=== PATIENT | female | born 1940 | race Caucasian/White ===

== ENCOUNTER 2018-02-09 14:53 | Outpatient (CLI) | payer MEDICARE, OTHER ==
--- NOTE | 2018-02-10 16:04 | DEXA Report ---
DEXA SCAN: 02/09/2018 CLINICAL INDICATION: Postmenopausal osteoporosis. TECHNIQUE: Dual energy x-ray absorptiometry (DXA) was performed on a KKBOX system. Regions measured are the AP spine, femoral neck, and, if needed, forearm. COMPARISON: None. In accordance with the International Society for Clinical Densitometry (ISCD) guidelines, data from previous exams may be reanalyzed using current recommendations and techniques. This is done to allow a more accurate basis for comparison with the current study. FINDINGS Data for the lumbar spine is as follows: REGION BMD (g/cm/cm) T-SCORE Z-SCORE L1 0.767 -3.0 -0.7 L2 0.858 -2.8 -0.5 L3 0.835 -3.0 -0.7 L4 0.934 -2.2 0.1 L1-L4 0.852 -2.7 -0.4 NOTE: All evaluable vertebrae are used for classification. Data for the hip is as follows: REGION BMD (g/cm/cm) T-SCORE Z-SCORE Neck 0.784 -1.8 0.6 TOTAL 0.783 -1.8 0.5 NOTE: The femoral neck or total proximal femur, whichever is lowest, is used for classification. IMPRESSION WHO CLASSIFICATION BASED ON THE INTERNATIONAL REFERENCE STANDARD IS OSTEOPOROSIS. FRACTURE RISK IS HIGH. RECOMMENDATION: Patients with diagnosis of osteoporosis or osteopenia should have regular bone mineral density assessment. For those eligible for Medicare, routine testing is allowed once every 2 years. Testing frequency can be increased for patients who have rapidly progressing disease or for those who are receiving medical therapy to restore bone mass. COMMENT World Health Organization (WHO) definitions for osteoporosis and osteopenia: NORMAL BMD: T-score at 1.0 or higher, fracture risk is low. OSTEOPENIA BMD: T-score between 1.0 and -2.5, fracture risk is increased. OSTEOPOROSIS BMD: T-score at 2.5 or lower, fracture risk high. National Osteoporosis Foundation recommends: 1. Obtain adequate dietary calcium (at least 1200 mg per day) and vitamin D (400 -800 international units per day). 2. Participate, as appropriate, in regular weightbearing and muscle- strengthening exercise. 3. Avoid tobacco use and reduce alcohol and caffeine intake. 4. For more detailed information see the website at www.NOF.org. TD: 02/10/2018 10:17 [email or web address]
== END 2018-02-09 14:54 | disposition home or self-care (01) ==
LOC: DI 14:53
PROVIDERS: ATTEND Family Medicine
DX: M81.0 Age-related osteoporosis without current pathological fracture (principal)
CPT/HCPCS: 77080

== ENCOUNTER 2021-02-07 14:53 | Outpatient (CLI) | payer MEDICARE, OTHER | END 2021-02-07 14:54 | disposition critical access hospital (66) | LOC: EMS 14:53 | DX: R40.0 Somnolence (principal) | CPT/HCPCS: A0425; A0429 ==

== ENCOUNTER 2021-02-07 15:04 | Emergency (ER) | payer MEDICARE, OTHER ==
[2021-02-07] MEDS ORDERED: SODIUM CHLORIDE 0.9% 1,000 ML IV STA (15:10)
[2021-02-07] MEDS ORDERED: ONDANSETRON 4 MG/2 ML VIAL IVP STA (15:11)
--- NOTE | 2021-02-07 15:12 | ED Physician Documentation ---
PD HPI ALTERED MENTAL STATUS - Stated complaint Stated Complaint: POSS STROKE - History obtained from History obtained from: Patient, EMS, Caregiver - History of Present Illness Timing - onset: Today Timing - duration: Hours (The patient was seen to be a little bit confused around 1 PM today after lunch. She was checked on again after 2:00 and was noted to be poorly responsive with apparently some weakness of the right side and possible facial droop. EMS was called and they brought her here. No noted fall or injury.) Timing - details: Abrupt onset Quality / character: Less responsive Associated symptoms: No: Fever, Headache, Dyspnea Contributing factors: No: Anticoagulated, Recent illness, Recent injury Basline status: Alert and oriented X 3, Ambulatory, Walker Similar symptoms before: Diagnosis (States the patient had a small intracranial bleed in 2017 in [place] that did not require surgery and she recovered fully.) Recently seen: Not recently seen Review of Systems Unable to obtain: AMS, Other (some info from daughter and ) Constitutional: denies: Fever GI: denies: Abdominal Pain, Vomiting, Diarrhea Skin: denies: Rash Neurologic: denies: Headache (no recent headaches per family) PD PAST MEDICAL HISTORY - Past Medical History Cardiovascular: Hypertension Respiratory: None Neuro: Other (prior ICH 2017 in [place] with full recover. No surgical intervention. ) Endocrine/Autoimmune: None - Present Medications Home Medications: Ambulatory Orders Medication Instructions Recorded Confirmed Atorvastatin [Lipitor] 20 mg PO DAILY 02/07/21 02/07/21 Calcium Carbonate/Vitamin D3 1 cap PO DAILY 02/07/21 02/07/21 [Calcium 600 mg-D3 10 Mcg Sfgl] Levothyroxine Sodium 50 mcg PO DAILY 02/07/21 02/07/21 [Levothyroxine] Lisinopril [Zestril] 20 mg PO DAILY 02/07/21 02/07/21 Multivitamin 1 tab PO DAILY 02/07/21 02/07/21 Psyllium Husk (with Sugar) [Konsyl 1 PO DAILY 02/07/21 Psyllium Fiber Packet] - Allergies Allergies/Adverse Reactions: Allergies Allergy/AdvReac Type Severity Reaction Status Date / Time adhesive Allergy Unknown Verified 02/07/21 15:17 amlodipine Allergy Unknown Verified 02/07/21 15:17 bacitracin Allergy Unknown Verified 02/07/21 15:17 [From Neosporin ([id number])] neomycin Allergy Unknown Verified 02/07/21 15:17 [From Neosporin ([id number])] polymyxin B Allergy Unknown Verified 02/07/21 15:17 [From Neosporin ([id number])] - Living Situation Living Situation: reports: Other (family lives in area and visits often. ) Living Arrangement: reports: Assisted living - Social History Does the pt smoke?: No Does the pt drink ETOH?: No Does the pt have substance abuse?: No - Family History Family history: reports: Non contributory - Immunizations Immunizations are current?: Yes - POLST POLST Status: Full Code PD ED PE NORMAL - Vitals Vital signs reviewed: Yes - General General: No acute distress, Well developed/nourished, Other - HEENT HEENT: Atraumatic, Other (positive gag reflex. ) - Neck Neck: Supple, no meningeal sign, No adenopathy - Cardiac Cardiac: RRR, No murmur - Respiratory Respiratory: No respiratory distress (unlabored breathing. Sats adequate on NC. ), Clear bilaterally, Other (no obvious chestwall deformity) - Abdomen Abdomen: Non tender (no noted guarding), Non distended - Female Female : Deferred - Rectal Rectal: Deferred - Derm Derm: Normal color, Warm and dry - Extremities Extremities: No tenderness to palpate (having some spontaneous extremity movements. ), No edema, No calf tenderness / cord - Neuro Neuro: No: Alert and oriented X 3 (somnolent but child care my hand on left particularly to command. ) Eye Opening: None Motor: Obeys Commands Verbal: None GCS Score: 8 Results - Vitals Vitals: Vital Signs - 24 hr 02/07/21 02/07/21 02/07/21 15:26 15:28 15:45 Temperature 35.5 C L 35.8 C L Heart Rate 73 63 Respiratory 19 20 Rate Blood Pressure 147/104 H 138/61 H O2 Saturation 86 L 99 99 02/07/21 02/07/21 02/07/21 16:15 16:30 17:00 Temperature 36.0 C L 36.1 C L 36.1 C L Heart Rate 61 64 63 Respiratory 19 21 20 Rate Blood Pressure 152/74 H 143/77 H 152/60 H O2 Saturation 99 100 98 Oxygen O2 Source Nasal cannula - Labs Labs: Laboratory Tests 02/07/21 02/07/21 02/07/21 15:34 15:35 15:35 WBC 7.8 RBC 3.43 L Hgb 9.9 L Hct 30.7 L MCV 89.5 MCH 28.9 MCHC 32.2 RDW 15.9 H Plt Count 130 MPV 13.0 H Neut # (Auto) 6.1 Lymph # (Auto) 1.1 L [place] # (Auto) 0.4 Eos # (Auto) 0.0 Baso # (Auto) 0.0 Absolute Nucleated RBC 0.02 Nucleated RBC % 0.3 PT INR APTT Sodium 136 Potassium 3.7 Chloride 103 Carbon Dioxide 23 Anion Gap 10.0 BUN 17 Creatinine 0.8 Estimated GFR (MDRD) 69 L Glucose 170 H Calcium 8.7 Magnesium 2.0 Total Bilirubin 1.0 AST 31 ALT 26 Alkaline Phosphatase 69 Total Protein 6.3 L Albumin 3.7 Globulin 2.6 Albumin/Globulin Ratio 1.4 Lipase 39 Nasal Adenovirus (PCR) NOT DETECTED Nasal B. parapertussis DNA (PCR) NOT DETECTED Nasal Coronavir 229E PCR NOT DETECTED Nasal Coronavir HKU1 PCR NOT DETECTED Nasal Coronavir NL63 PCR NOT DETECTED Nasal Coronavir OC43 PCR NOT DETECTED Nasal Enterovir/Rhinovir PCR NOT DETECTED Nasal Influenza B PCR NOT DETECTED Nasal Influenza A PCR NOT DETECTED Nasal Parainfluen 1 PCR NOT DETECTED Nasal Parainfluen 2 PCR NOT DETECTED Nasal Parainfluen 3 PCR NOT DETECTED Nasal Parainfluen 4 PCR NOT DETECTED Nasal RSV (PCR) NOT DETECTED Nasal B.pertussis DNA PCR NOT DETECTED Nasal C.pneumoniae (PCR) NOT DETECTED Omi Human Metapneumo PCR NOT DETECTED Nasal M.pneumoniae (PCR) NOT DETECTED Nasal SARS-CoV-2 (PCR) NOT DETECTED 02/07/21 15:35 WBC RBC Hgb Hct MCV MCH MCHC RDW Plt Count MPV Neut # (Auto) Lymph # (Auto) [place]bon # (Auto) Eos # (Auto) Baso # (Auto) Absolute Nucleated RBC Nucleated RBC % PT 12.2 INR 1.1 APTT 20.8 L Sodium Potassium Chloride Carbon Dioxide Anion Gap BUN Creatinine Estimated GFR (MDRD) Glucose Calcium Magnesium Total Bilirubin AST ALT Alkaline Phosphatase Total Protein Albumin Globulin Albumin/Globulin Ratio Lipase Nasal Adenovirus (PCR) Nasal B. parapertussis DNA (PCR) Nasal Coronavir 229E PCR Nasal Coronavir HKU1 PCR Nasal Coronavir NL63 PCR Nasal Coronavir OC43 PCR Nasal Enterovir/Rhinovir PCR Nasal Influenza B PCR Nasal Influenza A PCR Nasal Parainfluen 1 PCR Nasal Parainfluen 2 PCR Nasal Parainfluen 3 PCR Nasal Parainfluen 4 PCR Nasal RSV (PCR) Nasal B.pertussis DNA PCR Nasal C.pneumoniae (PCR) Omi Human Metapneumo PCR Nasal M.pneumoniae (PCR) Nasal SARS-CoV-2 (PCR) PD MEDICAL DECISION MAKING - ED course Complexity details: reviewed results (acute intracranail frontal left bleed with midline shift 12 mm. ), re-evaluated patient (She is having decreasing mentation now with some response to painful stimuli with withdrawal and localizing but no obeying of commands. [facility] is opting for intubation prior to flight.), considered differential, d/w patient, d/w family (daughter and ), d/w network security consultant (Stroke neurology Jackelyn Clarke who accepted transfer to the ER and will evaluate the patient there.) - Critical Care Time(min): 50 Time Includes: Direct patient care, Document care, Coordinate care, Family consult for [place] sep Data interpretation: Labs, Pulse ox Departure - Departure Disposition: 02 Transfer Acute Care Hosp Clinical Impression: Intracranial bleed Altered mental status Qualifiers: Altered mental status type: stupor Qualified Code(s): R40.1 - Stupor Condition: Stable
[2021-02-07] MEDS ORDERED: TRANEXAMIC ACID 1,000 MG in SODIUM CHLORIDE 0.9% 100ML 100 ML IV STA (15:29)
[2021-02-07] MEDS ORDERED: IOPAMIDOL-300 100 ML VIAL IVP ONE (15:29)
--- NOTE | 2021-02-07 15:40 | CT Report ---
PROCEDURE: ANGIO HEAD W/WO INDICATIONS: L sided facial droop CONTRAST: IV CONTRAST: Isovue 300 ml: 100 PO CONTRAST: *NO PO CONTRAST TECHNIQUE: After the administration of intravenous contrast, 1 mm thick sections acquired through th e [place] of [place]. Postcontrast 4.5 mm thick sections then re-acquired from the foramen magnum to t he vertex. 3-dimensional vyhixju-tbvgxbjze-iyiholqidi (MIP) and/or volume rendering reformats were a cquired of the central intracranial vasculature. For radiation dose reduction, the following was use d: automated exposure control, adjustment of mA and/or kV according to patient size. COMPARISON: Question is made with the previously performed noncontrast head CT as well as the accomp anying neck CT angiogram, 02/07/2021. FINDINGS: Image quality: Excellent. Anterior circulation: Intracranial internal carotid arteries are normal in size and flow. The flow within the paired anterior cerebral arteries is normal and symmetric. The flow within the middle cer ebral arteries is normal and symmetric. The anterior communicating artery is seen. No aneurysms are seen. Posterior circulation: Visualized portions of the vertebral arteries demonstrate normal caliber, and join to form a normal appearing basilar artery. Flow within the posterior cerebral arteries is norm al and symmetric. No aneurysms are seen. CSF spaces: There is effacement of the left lateral ventricle. The basal cisterns are narrowed. No extra-axial fluid collections. Brain: There is a prominent parenchymal mass seen within the left frontal lobe that measures 5.8 x 4 .1 cm in greatest axial dimension. There is associated mass effect seen, with midline shift of 12 mm. Early subfalcine herniation can be seen. There is a degree of hemorrhage suspected within the left l ateral ventricle. Atkinson-white matter interface appears intact. Skull and face: Calvarium and facial bones appear intact, without suspicious lesions. Sinuses: Visualized sinuses and mastoids are clear. IMPRESSION: A prominent amount of left frontal lobe intraparenchymal hemorrhage is seen, with hemorrhage also see n within the left lateral ventricle. There is associated mass effect with 12 mm of midline shift and early subfalcine herniation. The ba radha cisterns are narrowed, yet remain patent. No significant intracranial arterial abnormalities are seen. The configuration of the hemorrhage is most compatible with a hypertensive bleed. Please correlate wi th known patient history. Note: Critical finding of acute intracranial hemorrhage discussed by telephone with Dr. Dong at 2: 37 PM [place] time on 02/07/2021. Reviewed by: Donato Chen MD on 02/07/2021 2:39 PM LALY Approved by: Donato Chen MD on 02/07/2021 2:39 PM LALY Station ID: [id number]
--- NOTE | 2021-02-07 15:43 | CT Report ---
PROCEDURE: Head W/O Stroke Protocol INDICATIONS: decreased alertness and right weakness acute TECHNIQUE: Noncontrast 4.5 mm thick angled axial sections acquired from the foramen magnum to the vertex, with c oronal reformats. For radiation dose reduction, the following was used: automated exposure control, adjustment of mA and/or kV according to patient size. COMPARISON: FINDINGS: Image quality: Excellent. CSF spaces: Basal cisterns are patent. No extra-axial fluid collections. Ventricles are normal in size and shape. Brain: There is a large left frontal acute parenchymal bleed with hematoma measuring approximately 7. 6 x 4.6 x 6.9 cm. There is intraventricular extension of the left frontal bleed with acute blood with in the left lateral ventricle. Hematomas causing severe mass effect on the left lateral ventricle and approximately 1.7 cm of left to right midline shift. The right lateral ventricle is prominent concer diamond for developing ventricular entrapment. Encephalomalacia is noted in the frontal lobes and tempor al lobes bilaterally possibly related to remote trauma. Small hypodensity in the right occipital lobe at all small chronic infarct. Skull and face: Calvarium and visualized facial bones are intact, without suspicious lesions. Sinuses: Visualized sinuses and mastoids are clear. IMPRESSION: 1. Large left frontal acute parenchymal bleed and intraventricular extension. Left frontal parenchyma l hematomas causing approximately 1.7 cm of [id number] midline shift. 2. Findings telephoned to Dr. Dong on 02/07/2021 at 1535 hours. This study fulfills neurological imaging criteria for inclusion or exclusion of acute stroke therapie s based on available published neurological imaging guidelines. Reviewed by: Gisela Schneider MD, PhD on 02/07/2021 3:42 PM PDT Approved by: Gisela Schneider MD, PhD on 02/07/2021 3:42 PM PDT Station ID: [id number]
[2021-02-07 15:51] LABS: BASOPHILS % (AUTO) 0.4 %; EOSINOPHILS % (AUTO) 0.3 %; HCT - HEMATOCRIT 30.7 % (37.0-47.0); HGB - HEMOGLOBIN 9.9 g/dL (12.0-16.0); LYMPHOCYTES # (AUTO) 1.1 10^3/uL (1.5-3.5); LYMPHOCYTES % (AUTO) 13.8 %; MEAN CORPUSCULAR HEMOGLOBIN 28.9 pg (27.0-31.0); MEAN CORPUSCULAR HGB CONC 32.2 g/dL (32.0-36.0); MEAN CORPUSCULAR VOLUME 89.5 fL (81.0-99.0); MONOCYTES # (AUTO) 0.4 10^3/uL (0.0-1.0); MONOCYTES % (AUTO) 5.2 %; NEUTROPHILS # (AUTO) 6.1 10^3/uL (1.5-6.6); NEUTROPHILS % (AUTO) 78.5 %; NRBC ABSOLUTE COUNT (AUTO) 0.02 x10^3/uL; NUCLEATED RED BLOOD CELLS AUTO 0.3 /100WBC; PLT - PLATELET COUNT 130 10^3/uL (130-450); RED BLOOD COUNT 3.43 10^6/uL (4.20-5.40); RED CELL DISTRIBUTION WIDTH 15.9 % (12.0-15.0); WHITE BLOOD COUNT 7.8 x10^3/uL (4.8-10.8)
[2021-02-07] MEDS ORDERED: IOPAMIDOL-300 100 ML VIAL ONE (15:51)
--- NOTE | 2021-02-07 15:52 | CT Report ---
PROCEDURE: ANGIO NECK W INDICATIONS: L sided facial droop, L neck pain CONTRAST: IV CONTRAST: Isovue 300 ml: 100 PO CONTRAST: *NO PO CONTRAST TECHNIQUE: After the administration of intravenous contrast, 1.5 mm axial sections acquired from the aortic arch to the [place] of [place]. Coronal 3-D maximum intensity projection (MIP) and/or volume rendering ref ormats were then performed. For radiation dose reduction, the following was used: automated exposur e control, adjustment of mA and/or kV according to patient size. COMPARISON: Correlation is made with the accompanying head CT and head CT angiogram, 02/07/2021. FINDINGS: Image quality: Excellent. The patient's known left frontal lobe intervertebral hemorrhage is again seen. Carotid system: The great vessels demonstrate a conventional anatomy as they arise from the aortic a rch. The origins of the common carotid arteries appear patent. The common carotid arteries demonstr ate normal calibers and courses. The bifurcation regions demonstrate atherosclerotic calcification a nd irregularity. There is approximate 70% narrowing seen involving the left proximal internal carotid artery and approximately 50% narrowing seen involving the right proximal internal carotid artery. Th e more distal internal carotid arteries demonstrate normal caliber and course. Posterior circulation: The origins of the vertebral arteries appear patent. The more superior porti ons of the vertebral arteries demonstrate normal course and caliber. They join to form a normal appe aring basilar artery. Soft tissues: Visualized neck soft tissues demonstrate no suspicious abnormalities. The thyroid gla nd is normal in size. Bones: No suspicious bony lesions. Visualized cervical spine appears normally aligned. Degenerati ve changes are seen, which are worst inferiorly. IMPRESSION: Prominent left frontal lobe intraparenchymal hemorrhage. Please see the accompanying head CT reports. Impression 70% narrowing involving the left proximal internal carotid artery and approximately 50% na rrowing involving the right proximal internal carotid artery. The estimate of stenosis included in the report of the imaging study was calculated using the NASCET method Reviewed by: Donato Chen MD on 02/07/2021 2:51 PM AKLEYDI Approved by: Donato Chen MD on 02/07/2021 2:51 PM AKLEY[place] Station ID: [id number]
[2021-02-07 15:57] LABS: INR 1.1 (0.8-1.2); PT - PROTHROMBIN TIME 12.2 secs (9.9-12.6)
[2021-02-07 16:04] LABS: PARTIAL THROMBOPLASTIN TIME 20.8 secs (24.9-33.3)
[2021-02-07 16:07] LABS: ALBUMIN 3.7 g/dL (3.2-5.5); ALBUMIN/GLOBULIN RATIO 1.4 (1.0-2.2); CALCIUM 8.7 mg/dL (8.5-10.3); CREATININE 0.8 mg/dL (0.4-1.0); POTASSIUM 3.7 mmol/L (3.5-5.0); TOTAL PROTEIN 6.3 g/dL (6.7-8.2)
[2021-02-07 16:51] LABS: B. PARAPERTUSSIS- RESP PCR PAN NOT DETECTED; B. PERTUSSIS- RESP PCR PANEL NOT DETECTED; C. PNEUMONIAE- RESP PCR PANEL NOT DETECTED; CORONAVIRUS 229E-RESP PCR NOT DETECTED; CORONAVIRUS HKU1-RESP PCR NOT DETECTED; CORONAVIRUS NL63-RESP PCR NOT DETECTED; CORONAVIRUS OC43-RESP PCR NOT DETECTED; HUMAN METAPNEUMOVIRUS NOT DETECTED; INFLUENZA A- RESP PCR PANEL NOT DETECTED; INFLUENZA B - RESP PCR PANEL NOT DETECTED; M. PNEUMONIAE- RESP PCR PANEL NOT DETECTED; PARAINFLUENZA VIRUS 1 NOT DETECTED; PARAINFLUENZA VIRUS 2 NOT DETECTED; PARAINFLUENZA VIRUS 3 NOT DETECTED; PARAINFLUENZA VIRUS 4 NOT DETECTED; RHINOVIRUS/ENTEROVIRUS NOT DETECTED; RSV- RESP PCR PANEL NOT DETECTED; SARS-CoV-2 -RESP PCR PANEL NOT DETECTED
[2021-02-07 17:11] VITALS: BP 152/60
== END 2021-02-07 17:38 | disposition short-term general hospital (02) ==
LOC: EDUNIT# → ED 15:04 → SUPCPDRO 15:04 → ED 17:38
DX: I61.5 Nontraumatic intracerebral hemorrhage, intraventricular (principal); R40.1 Stupor; G81.91 Hemiplegia, unspecified affecting right dominant side; I65.23 Occlusion and stenosis of bilateral carotid arteries; I10 Essential (primary) hypertension; I45.81 Long QT syndrome; Z20.822 Contact with and (suspected) exposure to COVID-19
CPT/HCPCS: 36415; 70450; 70496; 70498; 80053; 83690; 83735; 85025; 85610; 85730; 87631; 93005; 96365; 96375; 99285; 99291; Q9967; 0202U